=== PATIENT | female | born 1985 | race Caucasian/White ===

== ENCOUNTER 2020-02-17 11:16 | Emergency (ER) | payer MEDICAID, SELFPAY ==
[2020-02-17 11:29] VITALS: BP 141/70; PULSE 92; RESP 16; TEMP 37.2; O2SAT 98
--- NOTE | 2020-02-17 11:37 | ED.DENTAL ---
HPI - Dental/Oral General Chief complaint: Dental/Oral Stated complaint: tooth ache/swollen jaw Time Seen by Provider: 02/17/20 11:38 Source: patient and RN notes reviewed Mode of arrival: ambulatory Limitations: no limitations History of Present Illness HPI Narrative: This is a 34 years old female presents to the office for an evaluation worsening dental pain for three days. MD Complaint: tooth pain Location: Tooth # Teeth map: 1. very carious Onset (ago): day(s) (3) Duration: constant Severity: severe Relieving factors: nothing Exacerbating factors: chewing and swallowing Context: history of dental caries (supposed to see dentist for extraction; but appointment got postpone) Associated symptoms: gum swelling, pain with swallowing and ear pain Treatment prior to arrival: oral analgesic (NSAID) Related Data Home Medications Medication Instructions Recorded Confirmed ibuprofen 800 mg PO Q6H 02/17/20 02/17/20 Allergies Allergy/AdvReac Type Severity Reaction Status Date / Time Penicillins Allergy Intermediate Hives / Verified 02/17/20 11:40 Red Face Review of Systems Review of Systems: Narrative: CONSTITUTIONAL: Denies fever or feeling ill ENT: Denies sore throat. Reports right ear pain CARDIOVASCULAR: Denies chest pain RESPIRATORY: Denies dyspnea GASTROINTESTINAL: Denies nausea, vomiting GENITOURINARY: Denies urinary symptoms MUSCULOSKELETAL: Denies joints pain NEUROLOGIC: Denies lightheaded PMFSH Past Medical History Medical History (Updated 02/17/20 @ 11:46 by RADHA Brown) Anxiety and depression Hx of fracture of finger Surgical History Surgical History (Updated 02/17/20 @ 11:37 by RADHA Brown) Hx of tubal ligation Comments At time of signature, I agree with nursing past medical, surgical, social and family history. There is no relevant family history pertinent to the presenting complaint. Exam Narrative: Exam Narrative: GENERAL: This is a well-nourished, well-developed patient, in no apparent distress. EYES: Sclera and conjunctivae normal ENT: External ears normal. Nose and lips normal. Airway patent.The tooth in question is very carious and the gum is swollen and tender around it. There is slight right side facial swelling when compare to her left face; there is no cervical or submandibular lymphadenopathy. The patient appears uncomfortable and in pain. CARDIOVASCULAR: Regular rate and rhythm without murmurs, gallops, or rubs. RESPIRATORY: Clear to auscultation. Breath sounds equal bilaterally. No wheezes, rales, or rhonchi. GASTROINTESTINAL: Abdomen soft, non-tender, nondistended. Bowel sounds are active. No hepato-splenomegaly, or palpable masses. No guarding. SKIN: warm, intact with no suspicious lesions or rash, good texture and turgor. NEURO: awake, alert, and oriented to person, place and time. There were no obvious focal neurologic abnormalities. Course Vital Signs Vital signs: Vital Signs Temperature 98.9 F 02/17/20 11:29 Pulse Rate 92 02/17/20 11:29 Respiratory Rate 16 02/17/20 11:29 Blood Pressure 141/70 H 02/17/20 11:29 Pulse Oximetry 98 02/17/20 11:29 Temperature 98.9 F 02/17/20 11:29 Pulse Rate 92 02/17/20 11:29 Respiratory Rate 16 02/17/20 11:29 Blood Pressure 141/70 H 02/17/20 11:29 Pulse Oximetry 98 02/17/20 11:29 MDM - Dental/Oral MDM Narrative Medical decision making narrative: Elevated BP noted: patient is informed that they may have pre-hypertension or hypertension based on a blood pressure reading in the department. I recommend the patient call the primary care provider listed on their discharge instructions or a physician of their choice this week to arrange follow-up for further evaluation of possible pre-hypertension or hypertension within 1-2week. Discharge instructions reviewed with patient, as well as provided in writing per nursing staff. The instructions also include specific and st
== END 2020-02-17 11:49 | disposition home or self-care (01) ==
PROVIDERS: Emergency Provider Nurse Practitioner; PCP Family Medicine
DX: K02.9 Dental caries, unspecified (principal)
CPT/HCPCS: 99213; G0463

== ENCOUNTER 2021-07-01 15:42 | Emergency (ER) | payer OTHER, SELFPAY ==
[2021-07-01 15:54] VITALS: BP 120/76; PULSE 88; RESP 20; TEMP 36.8; O2SAT 100
--- NOTE | 2021-07-01 17:29 | ED.SKABFB ---
HPI - Skin/Abscess/Foreign Bdy General Chief complaint: Skin/Abscess/Foreign Body Stated complaint: raised rash on left but cheek Time Seen by Provider: 07/01/21 17:29 Source: patient, family and old records reviewed Mode of arrival: ambulatory Limitations: no limitations History of Present Illness HPI narrative: 35 year old female who presents to [facility] with complaints of red raised rash to her left buttocks. Patient states that she thought she got bit by mosquito last week on her butt and then this rash has developed. Large red inflamed area noted on left buttock. minimal raised asymmetrical in appearance, warm to touch and is painful and itchy. Patient states that she has been taking OTC Benadryl. MD complaint: rash Severity scale (1-10): 10 Quality: other (throbbing) Related Data Allergies Allergy/AdvReac Type Severity Reaction Status Date / Time Penicillins Allergy Intermediate Hives / Verified 02/17/20 11:40 Red Face Review of Systems Review of Systems: CONSTITUTIONAL: Denies fever, chills, or sweats. EYES: Denies visual changes, redness, or discharge. ENT: Denies rhinorrhea, congestion, sore throat, or otalgia. CARDIOVASCULAR: Denies chest pain, palpitations, or edema. RESPIRATORY: Denies cough or dyspnea. GASTROINTESTINAL: Denies abdominal pain, nausea, vomiting, or diarrhea. GENITOURINARY: Denies dysuria or hematuria. SKIN: Positive for rash to left buttock which is painful and itchy. MUSCULOSKELETAL: Denies back pain, joint pain, or myalgia. NEUROLOGIC: Denies headache, numbness, or weakness. PSYCHIATRIC: Positive history of anxiety or depression. All systems reviewed & are unremarkable except as noted in HPI and below PMFSH Past Medical History Medical History (Updated 07/07/21 @ 08:44 by Ban Martinez NP) Anxiety and depression GERD (gastroesophageal reflux disease) Hx of fracture of finger Surgical History Surgical History Hx of tubal ligation Family History Family History (Updated 07/07/21 @ 08:45 by Ban Martinez NP) Other No significant family history Social History Social History (Updated 07/07/21 @ 08:45 by Ban Martinez NP) Smoking packs per day: 0.5 Smoking cigarettes per day: 10.0 Smoking status: Current every day smoker Tobacco type: cigarettes Alcohol intake: current Alcohol use details: social Substance use type: does not use Living arrangements: with family Gender identity (if verbalized by the patient): Female Comments At time of signature, agree with nursing past medical, surgical, social and family history. There is no relevant family history pertinent to the presenting complaint Exam Narrative: GENERAL: Well-appearing, well-nourished, and in no acute distress. HEAD: Normocephalic, atraumatic. EYES: PERRLA and EOMI. ENT: Nares clear, no rhinorrhea or epistaxis. Mucous membranes moist.TM's normal, throat normal NECK: Supple.no lymphadenopathy CHEST: Clear to auscultation. No respiratory distress.SAO2 100% on room air HEART: Regular rate and rhythm. No murmur heard. Normal peripheral pulses. ABDOMEN: Soft, nontender, nondistended, normal active bowel sounds. EXTREMITIES: Normal range of motion. No edema. SKIN: Warm, dry, red inflamed slight raised rash to left buttock approximately 8cm diameter which is warm to touch and painful and itchy, no drainage noted or pustular formation. NEURO: No focal deficits. Alert and oriented x3. Course Vital Signs Vital signs: Vital Signs Temperature 36.8 C 07/01/21 15:54 Pulse Rate 88 07/01/21 15:54 Respiratory Rate 07/01/21 15:54 Blood Pressure 120/76 07/01/21 15:54 Pulse Oximetry 100 07/01/21 15:54 Temperature 36.8 C 07/01/21 15:54 Pulse Rate 88 07/01/21 15:54 Respiratory Rate 07/01/21 15:54 Blood Pressure 120/76 07/01/21 15:54 Pulse Oximetry 100 07/01/21 15:54 MDM - Skin/Abscess/Foreign
== END 2021-07-01 18:08 | disposition home or self-care (01) ==
PROVIDERS: Emergency Provider Registered Nurse
DX: L03.317 Cellulitis of buttock (principal); F17.210 Nicotine dependence, cigarettes, uncomplicated; K21.9 Gastro-esophageal reflux disease without esophagitis
CPT/HCPCS: 99213; G0463

== ENCOUNTER 2023-11-27 15:38 | Emergency (ER) | payer OTHER, SELFPAY ==
--- NOTE | ~2023-11-27 | XR_ITS ---
EXAM: XR hip RT min 2V DATE: 11/27/2023 16:15 HISTORY: NKI,LAT PAIN REFERRING DOWN LEG AND IN TO GROIN . COMPARISON: None available. FINDINGS: Normal mineralization. No fracture or dislocation. No lytic or blastic lesion. Mild degene rative change in the right hip and pubic symphysis. No erosion or periosteal change. Soft tissues wit hin normal limits. IMPRESSION: No acute osseous finding in the right hip. Reviewed, dictated and finalized at location [facility]
[2023-11-27 15:46] VITALS: BP 148/84; PULSE 104; RESP 16; TEMP 36.8; O2SAT 98
--- NOTE | 2023-11-27 15:53 | ED.GENADULT ---
HPI - General Adult General Chief complaint: Extremity Problem,Nontraumatic Stated complaint: Right side hip pain Time Seen by Provider: 11/27/23 15:53 Source: patient, RN notes reviewed and old records reviewed Mode of arrival: ambulatory Limitations: no limitations History of Present Illness HPI narrative: 38 year old female who presents to [facility] with complaints of right sided hip pain since September which will radiate down her thigh and into her groin at times.Patient reports that her thigh feels sore also at times. Patinet reports that she has been taking Tylenol and Ibuprofen for hier discomfort which doesn't really seem to help. Patient reports that she has not had any injury to her right hip. MD complaint: right hip pain Onset (ago): month(s) (2 months) Severity scale (1-10): 3 Pain Consistency: other (depends on activity level) Exacerbating factors: movement and other (ambulation) Treatments prior to arrival: NSAID and other (Tylenol) Related Data Allergies Allergy/AdvReac Type Severity Reaction Status Date / Time Penicillins Allergy Intermediate Swelling Verified 11/27/23 16:02 of Lip/Tongue/Throat Review of Systems Review of Systems: CONSTITUTIONAL: Denies fever, chills, or sweats. EYES: Denies visual changes, redness, or discharge. ENT: Denies rhinorrhea, congestion, sore throat, or otalgia. CARDIOVASCULAR: Denies chest pain, palpitations, or edema. RESPIRATORY: Denies cough or dyspnea. GASTROINTESTINAL: Denies abdominal pain, nausea, vomiting, or diarrhea. GENITOURINARY: Denies dysuria or hematuria. SKIN: Denies rash or itching. MUSCULOSKELETAL: Denies back pain,positive for right hip joint pain radiating down anterior leg to knee., or myalgia. NEUROLOGIC: Denies headache, numbness, or weakness. PSYCHIATRIC: Positive for history of anxiety or depression. All systems reviewed & are unremarkable except as noted in HPI and below PMFSH Past Medical History Medical History (Updated 11/29/23 @ 11:32 by Ban Martinez NP) Anxiety and depression Fracture, ankle GERD (gastroesophageal reflux disease) Hx of fracture of finger Surgical History Surgical History Hx of tubal ligation Family History Family History (Updated 09/13/21 @ 08:45 by Ban Martinez NP) Other No significant family history Social History Social History Smoking packs per day: 0.5 Smoking cigarettes per day: 10.0 Smoking status: Current every day smoker Tobacco type: cigarettes Alcohol intake: current Alcohol use details: social Substance use type: does not use Living arrangements: with family Gender identity (if verbalized by the patient): Female Comments At time of signature, agree with nursing past medical, surgical, social and family history. There is no relevant family history pertinent to the presenting complaint Exam Narrative: GENERAL: Well-appearing, well-nourished, and in no acute distress. HEAD: Normocephalic, atraumatic. EYES: PERRLA and EOMI. ENT: Nares clear, no rhinorrhea or epistaxis. Mucous membranes moist.TM's normal, throat pink with no swelling NECK: Supple.no lymphadenopathy CHEST: Clear to auscultation. No respiratory distress.SAO2 98% on room air HEART: Regular rate and rhythm. No murmur heard. Normal peripheral pulses. ABDOMEN: Soft, nontender, nondistended, normal active bowel sounds. EXTREMITIES: Normal range of motion. No edema.Pain to right hip increases with ambulation and movement with some radiation down right anterior leg to knee and at times to groin. Patient denies any tingling or numbness to her right leg or foot, strong pedal pulse right foot. SKIN: Warm, dry, no rash. NEURO: No focal deficits. Alert and oriented x3. Course Course Emergency Course: Patient is aware of diagnosis, understands and agrees to treatment plan.? Anticipatory gu
== END 2023-11-27 17:30 | disposition home or self-care (01) ==
PROVIDERS: Emergency Provider Registered Nurse
DX: M25.551 Pain in right hip (principal); F17.210 Nicotine dependence, cigarettes, uncomplicated; K21.9 Gastro-esophageal reflux disease without esophagitis
CPT/HCPCS: 73502; 99213; G0463